=== PATIENT | male | born 1960 | race Caucasian/White ===

== ENCOUNTER 2021-09-17 15:26 | Emergency (ER) | payer MEDICARE ==
[2021-09-17 16:38] LABS: BLOOD UREA NITROGEN,BUN 12 mg/dL (7.0-18.0); CARBON DIOXIDE,CO2 25.4 mmol/L (21.0-32.0); CHLORIDE,CL 104 mmol/L (98-107); GLUCOSE RANDOM 135 mg/dL (74-106); POTASSIUM,K 3.2 mmol/L (3.5-5.1); SODIUM,NA 143 mmol/L (136-148)
[2021-09-17] MEDS: Sodium Chloride 0.9% 10 ML Syringe FLUSH PRN ×2 (16:39→21:23)
[2021-09-17] MEDS: Sodium Chloride 0.9% 2.5 ML Syringe FLUSH PRN ×2 (16:39→21:23)
[2021-09-17] MEDS ORDERED: Iopamidol 755 MG/ML 500 ML Multipack Bottle IVPUSH ONE (18:32)
[2021-09-17] MEDS ORDERED: Sodium Chloride 0.9% 1,000 ML IV ONE (19:24)
== END 2021-09-17 23:30 | disposition home or self-care (01) ==
LOC: MW.ED 15:26
DX: R55 Syncope and collapse (principal); R00.2 Palpitations; R42 Dizziness and giddiness; R10.9 Unspecified abdominal pain; R51.9 Headache, unspecified; R60.0 Localized edema; I10 Essential (primary) hypertension; E87.6 Hypokalemia; Z88.5 Allergy status to narcotic agent; Z20.822 Contact with and (suspected) exposure to COVID-19
CPT/HCPCS: 36415; 70450; 71045; 71260; 74174; 80053; 81001; 83880; 84439; 84443; 84484; 85025; 85610; 93005; 99285; J7030; Q9967; U0002; 93010; 99282

== ENCOUNTER 2021-09-22 21:07 | Emergency (ER) | payer MEDICARE ==
[2021-09-22] MEDS ORDERED: Hydrochlorothiazide 25 MG Tab PO ONE (21:44)
== END 2021-09-22 22:50 | disposition home or self-care (01) ==
LOC: MW.ED 21:07
DX: I10 Essential (primary) hypertension (principal); R60.9 Edema, unspecified
CPT/HCPCS: 99283; A9270

== ENCOUNTER 2021-09-23 10:36 | Emergency (ER) | payer MEDICARE ==
[2021-09-23] MEDS ORDERED: Hydrochlorothiazide 25 MG Tab PO ONE (10:53)
[2021-09-23 11:30] LABS: BLOOD UREA NITROGEN,BUN 13 mg/dL (7.0-18.0); CARBON DIOXIDE,CO2 28.7 mmol/L (21.0-32.0); CHLORIDE,CL 103 mmol/L (98-107); GLUCOSE RANDOM 124 mg/dL (74-106); POTASSIUM,K 3.3 mmol/L (3.5-5.1); SODIUM,NA 142 mmol/L (136-148)
[2021-09-23 11:51] LABS: CORONAVIRUS COVID-19 NAA NEGATIVE (NEGATIVE); INFLUENZA A NAA NEGATIVE (NEGATIVE); INFLUENZA B NAA NEGATIVE (NEGATIVE)
== END 2021-09-23 13:05 | disposition home or self-care (01) ==
LOC: MW.ED 10:36
DX: R00.2 Palpitations (principal); I10 Essential (primary) hypertension; Z88.5 Allergy status to narcotic agent; Z20.822 Contact with and (suspected) exposure to COVID-19
CPT/HCPCS: 0240U; 36415; 71045; 80053; 80305; 81003; 83735; 85025; 93005; 99285; A9270; 93010; 99282

== ENCOUNTER 2021-11-18 17:37 | Emergency (ER) | payer MEDICARE ==
[2021-11-18 18:51] LABS: CORONAVIRUS COVID-19 NAA NEGATIVE (NEGATIVE); INFLUENZA A NAA NEGATIVE (NEGATIVE); INFLUENZA B NAA NEGATIVE (NEGATIVE)
[2021-11-18] MEDS ORDERED: Amoxicillin/Clavulanate K 875-125 MG Tab PO ONE (18:51)
== END 2021-11-18 19:19 | disposition home or self-care (01) ==
LOC: MW.ED 17:37
DX: J01.00 Acute maxillary sinusitis, unspecified (principal); I10 Essential (primary) hypertension; Z88.5 Allergy status to narcotic agent; Z20.822 Contact with and (suspected) exposure to COVID-19
CPT/HCPCS: 0240U; 99283; A9270

== ENCOUNTER 2021-12-03 09:10 | Emergency (ER) | payer MEDICARE ==
[2021-12-03] MEDS ORDERED: Sodium Chloride 0.9% 2.5 ML Syringe FLUSH PRN (09:38)
[2021-12-03] MEDS ORDERED: Sodium Chloride 0.9% 10 ML Syringe FLUSH PRN (09:38)
[2021-12-03 10:22] LABS: BLOOD UREA NITROGEN,BUN 18 mg/dL (7.0-18.0); CARBON DIOXIDE,CO2 23.9 mmol/L (21.0-32.0); CHLORIDE,CL 105 mmol/L (98-107); GLUCOSE RANDOM 121 mg/dL (74-106); POTASSIUM,K 3.4 mmol/L (3.5-5.1); SODIUM,NA 139 mmol/L (136-148)
== END 2021-12-03 11:46 | disposition home or self-care (01) ==
LOC: MW.ED 09:10
DX: R33.9 Retention of urine, unspecified (principal); I10 Essential (primary) hypertension; R97.20 Elevated prostate specific antigen [PSA]; Z88.5 Allergy status to narcotic agent
CPT/HCPCS: 36415; 51702; 51798; 80053; 81003; 85025; 99283; G0103; J3490

== ENCOUNTER 2021-12-14 19:27 | Emergency (ER) | payer MEDICARE | END 2021-12-14 20:25 | disposition home or self-care (01) | LOC: MW.ED 19:27 | DX: T83.028A Displacement of other urinary catheter, initial encounter (principal); I10 Essential (primary) hypertension; Z88.5 Allergy status to narcotic agent | CPT/HCPCS: 99282; 99283 ==

== ENCOUNTER 2022-05-23 07:42 | Emergency (ER) | payer MEDICARE ==
[2022-05-23] MEDS ORDERED: Iopamidol 755 Mg/ML 100 ML Bottle IV ONE (08:42)
[2022-05-23 09:20] LABS: CARBON DIOXIDE,CO2 26.7 mmol/L (21.0-32.0); POTASSIUM,K 3.5 mmol/L (3.5-5.1)
== END 2022-05-23 12:02 | disposition home or self-care (01) ==
LOC: MW.ED 07:42
DX: S16.1XXA Strain of muscle, fascia and tendon at neck level, initial encounter (principal); I10 Essential (primary) hypertension; Z91.14 Patient's other noncompliance with medication regimen; Z88.5 Allergy status to narcotic agent; Z79.899 Other long term (current) drug therapy
CPT/HCPCS: 36415; 70498; 80053; 84484; 85025; 85610; 93005; 99284; Q9967; 93010

== ENCOUNTER 2022-07-05 19:55 | Emergency (ER) | payer MEDICARE ==
[2022-07-05] MEDS ORDERED: cloNIDine 0.1 MG Tab PO ONE (22:27)
[2022-07-05 23:01] LABS: CARBON DIOXIDE,CO2 28.7 mmol/L (21.0-32.0); POTASSIUM,K 3.4 mmol/L (3.5-5.1)
== END 2022-07-05 23:33 | disposition home or self-care (01) ==
LOC: MW.ED 19:55
DX: R07.9 Chest pain, unspecified (principal); I10 Essential (primary) hypertension; Z88.5 Allergy status to narcotic agent; Z79.899 Other long term (current) drug therapy
CPT/HCPCS: 36415; 71045; 71045-26; 80053; 84484; 85025; 93005; 99284

== ENCOUNTER 2022-09-23 20:51 | Emergency (ER) | payer MEDICARE, OTHER ==
[2022-09-23 22:23] LABS: CORONAVIRUS COVID-19 NAA NEGATIVE (NEGATIVE); INFLUENZA A NAA NEGATIVE (NEGATIVE); INFLUENZA B NAA NEGATIVE (NEGATIVE); RESPIRATORY SYNCYTIAL VIR NAA NEGATIVE (NEGATIVE)
[2022-09-23 22:27] LABS: ACETAMINOPHEN <2.0 ug/mL; BLOOD UREA NITROGEN,BUN 17 mg/dL (7.0-18.0); CARBON DIOXIDE,CO2 28.2 mmol/L (21.0-32.0); CHLORIDE,CL 106 mmol/L (98-107); ESTIMATED GFR 77 mL/min (>60); GLUCOSE RANDOM 127 mg/dL (74-106); LIPASE 63 U/L (73-393); POTASSIUM,K 3.4 mmol/L (3.5-5.1); SODIUM,NA 144 mmol/L (136-148)
[2022-09-23] MEDS ORDERED: Iopamidol 755 MG/ML 500 ML Multipack Bottle IVPUSH ONE (22:30)
[2022-09-23] MEDS ORDERED: Lisinopril 10 MG Tab PO ONE (23:19)
[2022-09-23] MEDS ORDERED: Lidocaine 1% 5 ML VIAL INJECT ONE (23:44)
== END 2022-09-24 04:58 ==
LOC: MW.ED 20:51
DX: G04.90 Encephalitis and encephalomyelitis, unspecified (principal); I10 Essential (primary) hypertension; Z88.5 Allergy status to narcotic agent; Z20.822 Contact with and (suspected) exposure to COVID-19
CPT/HCPCS: 0241U; 36415; 70470; 71046; 80053; 80143; 80179; 80305; 80307; 81001; 82140; 83690; 83735; 85025; 85652; 86140; 86592; 86695; 86696; 86850; 86900; 86901; 87040; 87086; 87389; 99285; A9270; Q9967; 70450; 70460; 70460-26; 99291; 99292; J3490